=== PATIENT | female | born 1955 | race Caucasian/White ===

== ENCOUNTER 2016-09-06 16:01 | Emergency (ER) | payer MEDICARE, OTHER ==
[~2016-09-06] VITALS: Ht 160 cm; Wt 87.9 kg
[2016-09-06] MEDS ORDERED: SODIUM CHLORIDE FLUSH 10 ML SYR IV PRN (16:10)
[2016-09-06] MEDS ORDERED: ASPIRIN 81 MG CHEW (CHILDREN'S ASA) PO ONE (16:10)
[2016-09-06] MEDS ORDERED: SODIUM CHLORIDE FLUSH 3 ML SYR IV ONE (16:10)
[2016-09-06] MEDS: NITROGLYCERIN SUBLINGUAL 0.4 MG (NITROQUICK) TABLET SL PRN ×2 (16:26→16:33)
[2016-09-06 16:29] LABS: BASOPHILS % (AUTO) 0 % (0-2); EOSINOPHILS # (AUTO) 0.2 10^3uL; EOSINOPHILS % (AUTO) 2 % (0-4); LYMPHOCYTES # (AUTO) 1.6 X10^3; MEAN CORPUSCULAR HEMOGLOBIN 29.2 PG (26.0-34.0); MEAN CORPUSCULAR HGB CONC 34.2 g/dL (31.0-37.0); MEAN CORPUSCULAR VOLUME 85 FL (80-100); MEAN PLATELET VOLUME 10.2 FL (6.0-9.5); MONOCYTES # (AUTO) 0.8 X10^3; MONOCYTES % (AUTO) 9 % (3-11); NEUTROPHILS # (AUTO) 6.5 X10^3; NEUTROPHILS % (AUTO) 71 % (51-67); PLATELET COUNT 194 10^3uL (150-450)
[2016-09-06] MEDS ORDERED: GI COCKTAIL 55 ML UDC PO ONE (16:35)
[2016-09-06] MEDS ORDERED: LORazepam 2 MG/ML (ATIVAN) 1 ML VIAL IV ONE (16:35)
[2016-09-06] MEDS ORDERED: LIDOCAINE 2% VISCOUS 20ML UDC PO ONE (16:38)
[2016-09-06] MEDS ORDERED: BELLADONNA/PHENOBARBITAL ELIXIR (DONNATAL) 10 ML UDC ONE (16:38)
[2016-09-06] MEDS ORDERED: MAG HYDROX/AL HYDROX/SIMETH 400-400-40/5 ML (MAG-AL PLUS XS) 30 ML UDC ONE (16:38)
[2016-09-06 16:43] LABS: ALBUMIN 4.3 g/dL (3.4-5.0); ALKALINE PHOSPHATASE 144 U/L (38-126); ANION GAP 19.1 MEQ/L (3-15); BUN/CREATININE RATIO 18 (10-20); CALCULATED IONIZED CALCIUM 3.8 mg/dL (3.8-4.6); CREATINE KINASE 35 U/L (30-135); TOTAL PROTEIN 8.2 g/dL (6.4-8.5)
--- NOTE | 2016-09-06 17:30 | NUR ---
denies need to urinate. cl
[2016-09-06 19:24] VITALS: BP 126/68
== END 2016-09-06 18:07 | disposition home or self-care (01) ==
LOC: ED 16:02
DX: R07.89 Other chest pain (principal); M94.0 Chondrocostal junction syndrome [Tietze]; F41.9 Anxiety disorder, unspecified; R74.0 Nonspecific elevation of levels of transaminase and lactic acid dehydrogenase [LDH]
CPT/HCPCS: 36415; 71010; 80053; 82550; 82553; 83880; 84443; 84484; 85025; 85379; 85610; 93005; 99285; A9270; J2060; 93010; 96374; 99284